=== PATIENT | female | born 1980 ===

== ENCOUNTER 2020-08-08 09:05 | Outpatient (CLI) | payer OTHER | END 2020-08-08 11:07 | disposition home or self-care (01) | LOC: SONOGRAMA 09:05 | PROVIDERS: ATTEND Pathology Anatomic Pathology & Clinical Pathology | DX: E04.2 Nontoxic multinodular goiter (principal) ==

== ENCOUNTER 2022-07-20 10:43 | Outpatient (CLI) | payer OTHER | END 2022-07-20 10:46 | disposition home or self-care (01) | LOC: SONOGRAMA 10:43 | PROVIDERS: ATTEND Pathology Anatomic Pathology | DX: D34 Benign neoplasm of thyroid gland (principal); E04.9 Nontoxic goiter, unspecified ==